=== PATIENT | female | born 1970 | race Caucasian/White ===

== ENCOUNTER → 2019-08-13 | Outpatient (CLI) | payer OTHER | LOC: LAB 17:42 → LAB SHORT 17:42 | DX: R82.79 Other abnormal findings on microbiological examination of urine (principal) | CPT/HCPCS: 87086 ==

== ENCOUNTER 2020-03-27 07:43 | Day surgery (SDC) | payer OTHER ==
[~2020-03-27] VITALS: Ht 175.3 cm; Wt 66.2 kg
[~2020-03-27 07:43] MED LIST: MIRENA1 EAC1 VAG
== END 2020-03-27 09:24 | disposition home or self-care (01) ==
LOC: ORSCSDS 07:43
PROVIDERS: Internal Medicine Gastroenterology
PROC: 0DBH8ZX Excision of Cecum, Via Natural or Artificial Opening Endoscopic, Diagnostic (ICD-10-PCS; principal; 2020-03-27 09:00)
PROC: 0DBL8ZZ Excision of Transverse Colon, Via Natural or Artificial Opening Endoscopic (ICD-10-PCS; principal; 2020-03-27 09:00)
DX: Z12.11 Encounter for screening for malignant neoplasm of colon (principal); Z80.0 Family history of malignant neoplasm of digestive organs; E55.9 Vitamin D deficiency, unspecified; D12.0 Benign neoplasm of cecum; D12.3 Benign neoplasm of transverse colon
CPT/HCPCS: 88305; J2704; J7120

== ENCOUNTER → 2020-07-13 | Outpatient (CLI) | payer OTHER | LOC: LAB 15:02 → LAB SHORT 15:02 | DX: R30.0 Dysuria (principal) | CPT/HCPCS: 87077; 87086; 87186 ==

== ENCOUNTER → 2020-09-06 | Outpatient (CLI) | payer OTHER | END | disposition home or self-care (01) | LOC: LAB 12:00 → LAB SHORT 12:00 | DX: M79.89 Other specified soft tissue disorders (principal) | CPT/HCPCS: 85379 ==